=== PATIENT | female | born 1950 | race African-American/Black ===

== ENCOUNTER 2017-06-14 11:40 | Outpatient (CLI) | payer MEDICARE, OTHER ==
[2017-06-14 13:01] LABS: Anion Gap 16 mmol/L (10-20); BUN (Urea Nitrogen) 19 mg/dL (9.8-20.1); Calc. Creatinine Clearance 0 mL/min (70-130); Calcium 8.9 mg/dL (7.8-10.44); Carbon Dioxide 25 mmol/L (23-31); Cardiac Risk 3.8 (Less than 4.5); Chloride 102 mmol/L (98-107); Cholesterol 135 mg/dl (< 200 Desired); Estimated GFR-MDRD 42; Glucose 405 mg/dL (80-115); HDL Cholesterol 36 mg/dL (>60 Neg Risk); LDL Cholesterol, Calculated 74 mg/dL; Potassium 3.7 mmol/L (3.5-5.1); Sodium 139 mmol/L (136-145); Triglycerides 125 mg/dL (Less than 150); Uric Acid 10.2 mg/dL (2.6-6.0)
== END 2017-06-14 11:41 | disposition home or self-care (01) ==
LOC: NAV LAB 11:40
PROVIDERS: ATTEND Family Medicine
DX: M10.9 Gout, unspecified (principal); Z79.899 Other long term (current) drug therapy
CPT/HCPCS: 36415; 80048; 80061; 84550

== ENCOUNTER 2018-02-17 14:46 | Emergency (ER) | payer MEDICARE, OTHER | END 2018-02-17 15:58 | disposition home or self-care (01) | LOC: NAV ERS 14:46 | DX: S81.832A Puncture wound without foreign body, left lower leg, initial encounter (principal); I10 Essential (primary) hypertension; E11.9 Type 2 diabetes mellitus without complications; E78.5 Hyperlipidemia, unspecified; Z79.4 Long term (current) use of insulin; Z79.82 Long term (current) use of aspirin; Z86.73 Personal history of transient ischemic attack (TIA), and cerebral infarction without residual deficits; Z79.899 Other long term (current) drug therapy; W22.8XXA Striking against or struck by other objects, initial encounter; Y92.810 Car as the place of occurrence of the external cause | CPT/HCPCS: 99283 ==

== ENCOUNTER 2019-02-12 16:05 | Inpatient (IN) | payer MEDICARE, OTHER ==
[2019-02-12 16:43] VITALS: BMI 51.3
[2019-02-12] MEDS ORDERED: Dextrose 50% Abboject 50 ML SYRINGE IVP PRN (18:10)
[2019-02-12] MEDS ORDERED: HumaLOG 300 UNITS/3 ML VIAL SC PRN (18:10)
[2019-02-12] MEDS ORDERED: Dextrose 5% in Water 1,000 ML IV PRN (18:10)
[2019-02-12] MEDS: Cefdinir 300 MG CAP PO SCH (21:37)
[2019-02-12] MEDS: Gabapentin 100 MG CAP PO SCH (21:38)
[2019-02-13 06:15] LABS: #Basophils 0.1 thou/uL (0.0-0.2); #Eosinphils 0.3 thou/uL (0.0-0.7); #Lymphocytes 1.2 thou/uL (1.20-3.40); #Monocytes 0.6 thou/uL (0.11-0.59); #Neutrophils 3.3 thou/uL (1.40-6.50); %Basophils 1.9 % (0.0-1.0); %Eosinophils 4.8 % (0.0-10.0); %Lymphocytes 21.2 % (21.0-51.0); %Monocytes 11.3 % (0.0-10.0); %Neutrophils 60.8 % (42.0-75.0); Hemoglobin 9.3 g/dL (12.0-16.0); Mean Corpuscular HGB CONC 32.1 g/dL (32.0-36.0); Mean Corpuscular Hemoglobin 30.3 pg (27.0-31.0); Mean Corpuscular Volume 94.2 fL (78.0-98.0); Mean Platelet Volume 6.2 fL (7.4-10.4); Platelet Count 220 thou/uL (130-400); RBC Distribution Width 15.7 % (11.5-14.5); Red Blood Cell (RBC) Count 3.08 mill/uL (4.20-5.40); White Blood Cell (WBC) Count 5.5 thou/uL (4.8-10.8)
[2019-02-13 06:16] LABS: Anion Gap 11 mmol/L (10-20); BUN (Urea Nitrogen) 19 mg/dL (9.8-20.1); Calc. Creatinine Clearance 61 mL/min (70-130); Calcium 8.3 mg/dL (7.8-10.44); Carbon Dioxide 23 mmol/L (23-31); Chloride 112 mmol/L (98-107); Estimated GFR-MDRD 33; Glucose 82 mg/dL (80-115); Potassium 5.7 mmol/L (3.5-5.1); Sodium 140 mmol/L (136-145)
[2019-02-13] MEDS: pyridOXINE 50 MG (B6) TAB PO SCH (09:10)
[2019-02-13] MEDS: Lisinopril 20 MG TAB PO SCH (09:11)
[2019-02-13] MEDS: Folic Acid 1 MG TAB PO SCH (09:11)
[2019-02-13] MEDS: NIFEdipine XL 30 MG TAB PO SCH (09:11)
[2019-02-13] MEDS: Cefdinir 300 MG CAP PO SCH ×2 (09:12→20:59)
[2019-02-13] MEDS: Aspirin 81 mg Enteric Coated Tablet PO SCH (09:12)
[2019-02-13] MEDS: Hydrochlorothiazide 25 MG TAB PO SCH (09:12)
[2019-02-13] MEDS: Gabapentin 100 MG CAP PO SCH ×3 (09:12→20:59)
[2019-02-13] MEDS: LINACLOTIDE (LINZESS) 145 MCG PO SCH (15:22)
[2019-02-14] MEDS: LINACLOTIDE (LINZESS) 145 MCG PO SCH (08:19)
[2019-02-14] MEDS: Cefdinir 300 MG CAP PO SCH ×2 (08:23→20:49)
[2019-02-14] MEDS: pyridOXINE 50 MG (B6) TAB PO SCH (08:23)
[2019-02-14] MEDS: Hydrochlorothiazide 25 MG TAB PO SCH (08:23)
[2019-02-14] MEDS: Folic Acid 1 MG TAB PO SCH (08:24)
[2019-02-14] MEDS: Lisinopril 20 MG TAB PO SCH (08:25)
[2019-02-14] MEDS: NIFEdipine XL 30 MG TAB PO SCH (08:25)
[2019-02-14] MEDS: Aspirin 81 mg Enteric Coated Tablet PO SCH (08:25)
[2019-02-14] MEDS: Gabapentin 100 MG CAP PO SCH ×3 (08:26→20:49)
[2019-02-14 10:53] LABS: Anion Gap 13 mmol/L (10-20); BUN (Urea Nitrogen) 19 mg/dL (9.8-20.1); Calc. Creatinine Clearance 59 mL/min (70-130); Calcium 8.2 mg/dL (7.8-10.44); Carbon Dioxide 21 mmol/L (23-31); Chloride 111 mmol/L (98-107); Estimated GFR-MDRD 32; Glucose 87 mg/dL (80-115); Potassium 5.9 mmol/L (3.5-5.1); Sodium 139 mmol/L (136-145)
--- NOTE | 2019-02-14 14:22 | ULT ---
VENOUS DOPPLER ULTRASOUND OF THE LEFT UPPER EXTREMITY: HISTORY: Left arm swelling and edema TECHNIQUE: Grayscale color-flow and spectral Doppler imaging of the deep venous system of the left upper extremi ty was performed. FINDINGS: There is good flow, compression and normal spectral waveforms in the left internal jugular, subclavia n, axillary, brachial, radial, ulnar, basilic and cephalic veins. IMPRESSION: No evidence of DVT in the left upper extremity.
[2019-02-14] MEDS: Enoxaparin Sodium 30 MG/0.3 ML SYRINGE SC SCH (20:49)
[2019-02-15 05:32] LABS: #Basophils 0.1 thou/uL (0.0-0.2); #Eosinphils 0.2 thou/uL (0.0-0.7); #Lymphocytes 1.5 thou/uL (1.20-3.40); #Monocytes 0.5 thou/uL (0.11-0.59); #Neutrophils 2.5 thou/uL (1.40-6.50); %Basophils 1.4 % (0.0-1.0); %Eosinophils 4.3 % (0.0-10.0); %Lymphocytes 31.2 % (21.0-51.0); %Monocytes 10.8 % (0.0-10.0); %Neutrophils 52.3 % (42.0-75.0); Hemoglobin 9.1 g/dL (12.0-16.0); Mean Corpuscular HGB CONC 31.6 g/dL (32.0-36.0); Mean Corpuscular Hemoglobin 30.2 pg (27.0-31.0); Mean Corpuscular Volume 95.4 fL (78.0-98.0); Mean Platelet Volume 6.1 fL (7.4-10.4); Platelet Count 211 thou/uL (130-400); RBC Distribution Width 15.7 % (11.5-14.5); Red Blood Cell (RBC) Count 3.03 mill/uL (4.20-5.40); White Blood Cell (WBC) Count 4.7 thou/uL (4.8-10.8)
[2019-02-15 05:42] LABS: Anion Gap 13 mmol/L (10-20); BUN (Urea Nitrogen) 19 mg/dL (9.8-20.1); Calc. Creatinine Clearance 62 mL/min (70-130); Calcium 8.3 mg/dL (7.8-10.44); Carbon Dioxide 21 mmol/L (23-31); Chloride 112 mmol/L (98-107); Estimated GFR-MDRD 34; Glucose 71 mg/dL (80-115); Potassium 5.7 mmol/L (3.5-5.1); Sodium 140 mmol/L (136-145)
[2019-02-15] MEDS: LINACLOTIDE (LINZESS) 145 MCG PO SCH (07:30)
[2019-02-15] MEDS: Aspirin 81 mg Enteric Coated Tablet PO SCH (08:09)
[2019-02-15] MEDS: Gabapentin 100 MG CAP PO SCH ×3 (08:09→20:26)
[2019-02-15] MEDS: Cefdinir 300 MG CAP PO SCH ×2 (08:09→20:26)
[2019-02-15] MEDS: Folic Acid 1 MG TAB PO SCH (08:10)
[2019-02-15] MEDS: pyridOXINE 50 MG (B6) TAB PO SCH (08:10)
[2019-02-15] MEDS: Lisinopril 20 MG TAB PO SCH (08:11)
[2019-02-15] MEDS: Hydrochlorothiazide 25 MG TAB PO SCH (08:12)
[2019-02-15] MEDS: NIFEdipine XL 30 MG TAB PO SCH (08:12)
[2019-02-15] MEDS: Enoxaparin Sodium 30 MG/0.3 ML SYRINGE SC SCH (20:25)
[2019-02-16] MEDS: LINACLOTIDE (LINZESS) 145 MCG PO SCH (07:37)
[2019-02-16] MEDS: Folic Acid 1 MG TAB PO SCH (08:15)
[2019-02-16] MEDS: Aspirin 81 mg Enteric Coated Tablet PO SCH (08:16)
[2019-02-16] MEDS: Lisinopril 20 MG TAB PO SCH (08:17)
[2019-02-16] MEDS: pyridOXINE 50 MG (B6) TAB PO SCH (08:17)
[2019-02-16] MEDS: Hydrochlorothiazide 25 MG TAB PO SCH (08:18)
[2019-02-16] MEDS: Gabapentin 100 MG CAP PO SCH (08:18)
[2019-02-16] MEDS: Cefdinir 300 MG CAP PO SCH ×2 (08:18→20:38)
[2019-02-16] MEDS: NIFEdipine XL 30 MG TAB PO SCH (08:18)
[2019-02-16 10:44] LABS: Anion Gap 12 mmol/L (10-20); BUN (Urea Nitrogen) 19 mg/dL (9.8-20.1); Calc. Creatinine Clearance 60 mL/min (70-130); Calcium 8.3 mg/dL (7.8-10.44); Carbon Dioxide 21 mmol/L (23-31); Chloride 112 mmol/L (98-107); Estimated GFR-MDRD 33; Glucose 85 mg/dL (80-115); Potassium 5.5 mmol/L (3.5-5.1); Sodium 139 mmol/L (136-145)
[2019-02-16] MEDS: hydrALAZINE 25 MG TAB PO SCH ×2 (15:03→20:38)
--- NOTE | 2019-02-16 15:29 | HP ---
The patient of Dr. Melany Chaney. Silvino of admission to the skilled unit on February 12, 2019. HISTORY OF PRESENT ILLNESS: The patient is a very thin, cachectic, 68-year-old black female who was transferred from [facility] after having diagnosis of altered mental status, secondary to significant hypoglycemia. She has history of type 2 diabetes, but apparently, has not been on any medications, but has been eating poorly, secondary to chronic kidney disease and a distant CVA. She also has a history of hypertension which was treated with lisinopril and hydrochlorothiazide and was found to be hypertensive on presentation to [facility]. Her glucose was found on admission to be 48, and she responded to treatment after infusion of glucose and better control of her blood pressure. She had evaluation with CT angio of the head showing no significant abnormalities as well as CT of the brain showing no acute findings. She subsequently was felt to have only hypoglycemia secondary to poor oral intake and decreased nutrition and responded to treatment for such at hospital, but was found to be significantly weak and unable to maintain ADLs. She was also found that she had been taking gabapentin 300 mg three times daily, and it was felt this may have contributed to her lethargy, and this was decreased to 100 mg three times daily. Finally, she was found to have urinary tract infection with pyuria and bacteria, but with a negative culture, being treated with Omnicef. Her blood pressure has been controlled with the addition of Procardia. At this time, she is awake and responsive, but still very weak and somewhat confused. REVIEW OF SYSTEMS: Unable to be obtained. PAST MEDICAL HISTORY: Obtained from the old chart is positive for hypertension, hyperlipidemia, and diabetes. PAST SURGICAL HISTORY: Positive for hysterectomy. MEDICATIONS: At this time, include; 1. Omnicef 300 twice daily. 2. Lovenox 30 mg subcu daily. 3. Gabapentin 100 three times daily. 4. Hydrochlorothiazide 25 daily. 5. Lisinopril 20 daily. 6. Nifedipine 60 daily. 7. Sertraline 25 nightly. PHYSICAL EXAMINATION: VITAL SIGNS: Show blood pressure 157/77, pulse 73, respirations 18, O2 sat is 100% on room air, and temperature is 98.7. HEENT: Shows pupils to be equal, round, and reactive to light and accommodation. Sclerae anicteric. Conjunctivae pale. Oral mucous membranes are dehydrated. NECK: Shows JVP is not elevated. Carotids 2+ and equal without bruits. No nodes or masses. LUNGS: Clear. No rales, rhonchi, rubs, or wheezes. CARDIAC: Regular rhythm. No gallops or murmurs. ABDOMEN: Soft and nontender with no masses or organomegaly. SKIN/EXTREMITIES: Show trace edema. No clubbing or cyanosis. NEUROLOGIC: The patient is lethargic, but responds appropriately. No acute distress. No focal findings. No numbness. No localized decreased sensation or strength. LABORATORY DATA: On admission showed a white count of 5500, hematocrit 29, and hemoglobin 9. Accu-Cheks ranged from 71 to 84. Sodium 139, potassium 5.9, chloride 111, bicarbonate 21, BUN 19, and creatinine 1.9. ASSESSMENT: A 68-year-old white female with history of recurrent hypoglycemia and chronic kidney disease stage 3, who is very weak and lethargic, but is eating and responding appropriately and will be started on PT. Will be monitored closely for recurrent hypoglycemia and for worsening renal failure and hyperkalemia. Job ID: [id number]
[2019-02-16] MEDS: Enoxaparin Sodium 30 MG/0.3 ML SYRINGE SC SCH (20:37)
[2019-02-16] MEDS ORDERED: hydrALAZINE 25 MG TAB PO SCH (21:45)
--- NOTE | 2019-02-16 21:56 | PRG ---
DATE OF SERVICE: 02/15/2019 SUBJECTIVE: The patient is a very thin 68-year-old black female with a history of malnutrition, recurrent hypoglycemia and significant weakness, who has been admitted to inpatient rehab for strengthening. She has been slowly improving. Her urinary tract infection has been treated. She is becoming more awake and responsive. OBJECTIVE: VITAL SIGNS: Show to have blood pressure 182/93, pulse 79, O2 saturations 99% on room air. LUNGS: Clear. CARDIAC: Shows regular rhythm. ABDOMEN: Soft and nontender. LABORATORY DATA: White count is 4700, hematocrit is 28, hemoglobin 9.1. Accu-Cheks ranged from 67 to 82. Sodium is 140, potassium 5.7, chloride 112, bicarb 21, BUN 19, creatinine 1.81. ASSESSMENT: 1. Fairly cachectic black female with malnutrition, recurrent hypoglycemia, appears to be improving with nutrition in the hospital. 2. Chronic kidney disease, stage 3, which is stable. 3. Hyperkalemia, stable. 4. Severe deconditioning, slowly improving. PLAN: 1. Continue PT, OT. Continue to monitor blood pressure off lisinopril, but only on hydralazine and hydrochlorothiazide. 2. Continue only Accu-Cheks for diabetic control. 3. Discontinue gabapentin and monitor lethargy. 4. Continue Omnicef for urinary tract infection. Job ID: [id number]
--- NOTE | 2019-02-16 22:17 | PRG ---
DATE OF SERVICE: 02/16/2019 SUBJECTIVE: The patient feels well, lying in bed, resting, but awakens easily, states she better and ready for therapy tomorrow. OBJECTIVE: VITAL SIGNS: Show blood pressure 150/68, temperature 97, pulse 72, respirations 19, O2 saturations 96% on room air. LUNGS: Clear. CARDIAC: Shows regular rhythm. ABDOMEN: Soft, nontender LABORATORY DATA: Show sodium stable at 139, potassium decreased , chloride 112, bicarb 21, BUN 19, creatinine 1.85. Accu-Cheks ranged from 67 to 84. ASSESSMENT: Improving deconditioning, stable chronic kidney disease stage 3, improving nutrition, but with persistent borderline hypoglycemia, borderline hypertension, off lisinopril. PLAN: Increase hydralazine to 50 mg three times daily. Continue to stress oral intake. Continue to stress fluid intake. Continue hydrochlorothiazide, but monitor renal function. Restart PT/OT tomorrow. Job ID: [id number]
[2019-02-17] MEDS: LINACLOTIDE (LINZESS) 145 MCG PO SCH (09:08)
[2019-02-17] MEDS: pyridOXINE 50 MG (B6) TAB PO SCH (09:08)
[2019-02-17] MEDS: hydrALAZINE 25 MG TAB PO SCH ×3 (09:10→20:25)
[2019-02-17] MEDS: NIFEdipine XL 30 MG TAB PO SCH (09:10)
[2019-02-17] MEDS: Folic Acid 1 MG TAB PO SCH (09:11)
[2019-02-17] MEDS: Hydrochlorothiazide 25 MG TAB PO SCH (09:12)
[2019-02-17] MEDS: Aspirin 81 mg Enteric Coated Tablet PO SCH (09:12)
[2019-02-17] MEDS: Cefdinir 300 MG CAP PO SCH ×2 (09:13→20:24)
--- NOTE | 2019-02-17 13:04 | HP ---
CHIEF COMPLAINT: Deconditioning, for physical therapy. HISTORY OF PRESENT ILLNESS: This is a 68-year-old overweight female, who presented to [facility] in [place].. She was noted to be hypoglycemic with uncontrolled hypertension. She was admitted to the hospital and treated with IV fluids and decrease in dose of gabapentin to 100 mg t.i.d. She was positive for UTI and was treated with Omnicef. Procardia was added for blood pressure. She has been transferred here for therapy. The patient is resting comfortably and denies any complaints. Family thinks that the Zoloft is causing some problem with her cognition. She also has left upper extremity swelling, which apparently has been there since hospital admission to [facility] on the . Plan is to get a venous Doppler of the left lower extremity and elevate left arm. She has chronic lymphedema and stasis dermatitis in her lower extremities. PAST MEDICAL HISTORY: 1. Diabetes mellitus, type 2. 2. Hypertension 3. Dyslipidemia. 4. chronic lymphedema PAST SURGICAL HISTORY: Hysterectomy. PSYCHOSOCIAL HISTORY: Denies any tobacco, alcohol, or recreational drug use. Good family support. FAMILY HISTORY: Noncontributory. ALLERGIES: NO KNOWN DRUG ALLERGIES. MEDICATIONS: She has been transferred here on the following medications: 1. Cefdinir 300mg po twice daily. 2. Gabapentin 100 mg t.i.d. 3. Carvedilol 6.25mg po twice daily . 4. Lisinopril 20 mg daily. 5. Procardia XL 60 mg daily. 6. Linzess 145 mcg daily. 7. Potassium 40 mEq b.i.d. 8. Vitamin B6 25 mg daily. 9. Zoloft 50 mg at bedtime. REVIEW OF SYSTEMS: CARDIOVASCULAR SYSTEM: Denies any chest pain, shortness of breath, palpitations, PND, orthopnea, or pedal edema. RESPIRATORY SYSTEM: Denies any chronic cough, expectoration, or pleuritic type chest pain. GASTROINTESTINAL SYSTEM: Denies any nausea, vomiting, or diarrhea. She does have chronic constipation. Denies any hematemesis, melena, or hematochezia. GENITOURINARY SYSTEM: Denies any frequency, urgency, dysuria, or hematuria. CENTRAL NERVOUS SYSTEM: denies any focal numbness or fainting spells. Encephalopathy is improving per family. HEENT: No difficulty with speech, vision, or hearing. She does need assistance with feeding. SKIN: Denies any change to her rash. She does have chronic stasis dermatitis and lymphedema. PHYSICAL EXAMINATION: GENERAL: A pleasant 68-year-old overweight female, who is resting comfortably in bed and denies any complaints. She responds appropriately to questions. Family is with her. HEENT: Normocephalic and atraumatic. Pupils equally react to light and accommodation. NECK: No JVD, thyromegaly, cervical lymphadenopathy, throat exudates, or carotid bruits. CARDIOVASCULAR SYSTEM: S1 and S2 +, RRR. ABDOMEN: Soft, obese, and nontender. Bowel sounds heard in all quadrants. EXTREMITIES: Chronic lymphedema of bilateral lower extremity with stasis dermatitis and hyperpigmentation. There is some swelling in her left upper extremity, but no tenderness. No warmth or redness. CENTRAL NERVOUS SYSTEM: Awake and responsive. Cranial nerves 2 through 12 grossly intact. Motor system examination shows generalized weakness. LABORATORY VALUES: White count is 5.5, H and H are 9.3 and 29.1. Sodium 139, potassium slightly elevated at 5.9, and BUN and creatinine are 19 and 1.90. IMPRESSION: 1. Resolved hypoglycemia. 2. Improving encephalopathy. 3. Possible urinary tract infection. 4. Diabetes mellitus, type 2. 5. Hypertension. 6. Dyslipidemia. 7. Chronic lymphedema. 8. Hyperkalemia. 9. Chronic kidney disease, stage 3. PLAN: 1. Stop potassium supplements. 2. Continue other discharge medications. 3. Accu-Cheks a.c. and at bedtime with mild sliding scale coverage. 4. 1800 calorie heart healthy renal diet. 5. DVT prophylaxis with PlexiPulses. 6. Decubitus precaution. 7. PT/OT eval and treat. 8. Recheck potassium levels. 9. Titrate Zoloft to off per family request. 10. Left upper extremity venous Doppler. 11. Discussed with the patient and family in detail. All questions answered. Job ID: [id number] [facility]
--- NOTE | 2019-02-17 19:28 | PRG ---
DATE OF SERVICE: 02/17/2019 [address] patient is of Dr. Melany Chaney. SUBJECTIVE: The patient feels better today, cooperating with therapy, more alert and responsive. Still very weak. OBJECTIVE: VITAL SIGNS: Shows blood pressure still up to 172/79, pulse 76, temperature 97.7, O2 sats 97% on room air. Accu-Cheks ranged from 68 to 92. PT states that the patient is cooperating, still barely able to sit up inside the bed without assistance. ASSESSMENT: 1. Severe deconditioning, improving slowly with good cooperation. 2. Persistent hypertension, on hydralazine 50 mg three times daily and we will add carvedilol 6.25 twice daily. 3. Chronic kidney disease stage 3, off lisinopril and hydrochlorothiazide, stable. 4. Malnutrition improving as the patient is eating well. PLAN: 1. Continue PT/OT. 2. Add carvedilol 6.25 twice daily. Continue to monitor oral intake. Continue to monitor Accu-Cheks. Job ID: [id number]
[2019-02-17] MEDS: Enoxaparin Sodium 30 MG/0.3 ML SYRINGE SC SCH (20:24)
[2019-02-18] MEDS: LINACLOTIDE (LINZESS) 145 MCG PO SCH (08:05)
[2019-02-18] MEDS: NIFEdipine XL 30 MG TAB PO SCH (08:06)
[2019-02-18] MEDS: pyridOXINE 50 MG (B6) TAB PO SCH (08:06)
[2019-02-18] MEDS: Cefdinir 300 MG CAP PO SCH (08:06)
[2019-02-18] MEDS: Aspirin 81 mg Enteric Coated Tablet PO SCH (08:06)
[2019-02-18] MEDS: hydrALAZINE 25 MG TAB PO SCH ×3 (08:07→20:43)
[2019-02-18] MEDS: Carvedilol 6.25 MG TAB PO SCH ×2 (08:07→17:46)
[2019-02-18] MEDS: Hydrochlorothiazide 25 MG TAB PO SCH (08:07)
[2019-02-18] MEDS: Folic Acid 1 MG TAB PO SCH (09:00)
--- NOTE | 2019-02-18 13:31 | PRG ---
DATE OF SERVICE: 02/18/2019 SUBJECTIVE: Ms. Valentin is up in her bed and just finished eating her lunch. She ate about 30%. She is on pureed diet with a mechanically soft or ground meats. She apparently had about half of her Nepro pudding this morning. I advised the patient that she needs to eat and drink well, so that she can get better. No family at bedside. OBJECTIVE: VITAL SIGNS: She is afebrile. Heart rate is 74, respirations 18, oxygen saturation 98% on room air, blood pressure 169/81. CARDIOVASCULAR SYSTEM: S1 and S2 plus. RESPIRATORY SYSTEM: Normal vesicular breath sounds. ABDOMEN: Soft, nontender. Bowel sounds heard in all quadrants. EXTREMITIES: Chronic lymphedema. CENTRAL NERVOUS SYSTEM: Awake and responsive. Generalized weakness. LABORATORY DATA: Blood sugars are under excellent control at 97, 92, 82, 74, and 70. Her sodium is 139, this was from the 26th, potassium still high at 5.5, BUN and creatinine are 19 and 1.85. IMPRESSION: 1. Resolved urinary tract infection. 2. Hyperkalemia, improving. 3. Diabetes mellitus, type 2. 4. Hypertension. 5. Dyslipidemia. 6. Chronic lymphedema. 7. Peripheral neuropathy. 8. Deconditioning. PLAN: 1. Continue current medications, but discontinue Omnicef and Zoloft per family's request. 2. Continue other medications. 3. Nutritional support. 4. Three-day calorie count. 5. DVT prophylaxis with Lovenox. 6. Decubitus precaution. 7. Stress ulcer prophylaxis. 8. PT and OT eval and treat. 9. Discussed with the patient and nursing in detail. All questions answered. Job ID: [id number]
[2019-02-18] MEDS: Enoxaparin Sodium 30 MG/0.3 ML SYRINGE SC SCH (20:43)
[2019-02-19 07:06] LABS: #Eosinphils 0.2 thou/uL (0.0-0.7); #Lymphocytes 1.1 thou/uL (1.20-3.40); #Monocytes 0.4 thou/uL (0.11-0.59); #Neutrophils 3.6 thou/uL (1.40-6.50); %Basophils 0.9 % (0.0-1.0); %Lymphocytes 20.8 % (21.0-51.0); %Monocytes 7.9 % (0.0-10.0); %Neutrophils 67.4 % (42.0-75.0); Hemoglobin 8.7 g/dL (12.0-16.0); Mean Corpuscular HGB CONC 31.5 g/dL (32.0-36.0); Mean Corpuscular Hemoglobin 29.7 pg (27.0-31.0); Mean Corpuscular Volume 94.4 fL (78.0-98.0); Mean Platelet Volume 7.2 fL (7.4-10.4); Platelet Count 196 thou/uL (130-400); RBC Distribution Width 15.9 % (11.5-14.5); Red Blood Cell (RBC) Count 2.91 mill/uL (4.20-5.40); White Blood Cell (WBC) Count 5.3 thou/uL (4.8-10.8)
[2019-02-19 07:18] LABS: Anion Gap 12 mmol/L (10-20); BUN (Urea Nitrogen) 18 mg/dL (9.8-20.1); Calc. Creatinine Clearance 59 mL/min (70-130); Calcium 8.2 mg/dL (7.8-10.44); Carbon Dioxide 20 mmol/L (23-31); Chloride 110 mmol/L (98-107); Estimated GFR-MDRD 32; Glucose 80 mg/dL (80-115); Potassium 4.9 mmol/L (3.5-5.1); Sodium 137 mmol/L (136-145)
[2019-02-19] MEDS: NIFEdipine XL 30 MG TAB PO SCH (08:10)
[2019-02-19] MEDS: Hydrochlorothiazide 25 MG TAB PO SCH (08:11)
[2019-02-19] MEDS: hydrALAZINE 25 MG TAB PO SCH ×3 (08:11→21:09)
[2019-02-19] MEDS: pyridOXINE 50 MG (B6) TAB PO SCH (08:11)
[2019-02-19] MEDS: Carvedilol 6.25 MG TAB PO SCH ×2 (08:11→17:15)
[2019-02-19] MEDS: Aspirin 81 mg Enteric Coated Tablet PO SCH (08:11)
[2019-02-19] MEDS: Folic Acid 1 MG TAB PO SCH (08:12)
[2019-02-19] MEDS: Enoxaparin Sodium 30 MG/0.3 ML SYRINGE SC SCH (21:11)
[2019-02-20] MEDS: Folic Acid 1 MG TAB PO SCH (08:10)
[2019-02-20] MEDS: pyridOXINE 50 MG (B6) TAB PO SCH (08:11)
[2019-02-20] MEDS: hydrALAZINE 25 MG TAB PO SCH ×3 (08:11→21:00)
[2019-02-20] MEDS: Hydrochlorothiazide 25 MG TAB PO SCH (08:11)
[2019-02-20] MEDS: Carvedilol 6.25 MG TAB PO SCH ×2 (08:12→17:26)
[2019-02-20] MEDS: NIFEdipine XL 30 MG TAB PO SCH (08:12)
[2019-02-20] MEDS: Aspirin 81 mg Enteric Coated Tablet PO SCH (08:13)
--- NOTE | 2019-02-20 12:46 | PRG ---
DATE OF SERVICE: 02/20/2019 SUBJECTIVE: Ms. Valentin is up in her bed, eating her pureed diet. She is able to feed herself, but apparently, her appetite has not been good, 3-day calorie count is underway. Her niece had also called the office wanting to know what the discharge plan is because she thinks Ms. Valentin cannot take care of herself at home, and all agree based upon therapy and nursing notes as well as my discussion with them. I advised I could not talk to the niece as she did not cloth picker her phone and voicemail is not set up. I did let nursing know that plan is to consult Case Management and help with discharge planning and possible halfway placement. OBJECTIVE: VITAL SIGNS: She is afebrile. Heart rate 68, respirations 16, oxygen saturation 97% on room air, blood pressure 152/68. CARDIOVASCULAR: S1 and S2 plus. RESPIRATORY: Normal vesicular breath sounds. ABDOMEN: Soft, obese, and nontender. Bowel sounds heard in all quadrants. EXTREMITIES: Without cyanosis or clubbing. Chronic stasis dermatitis and looks like chronic lymphedema. CENTRAL NERVOUS SYSTEM: Awake and responsive. Cranial nerves 2 through 12 grossly intact. She does have dysphagia, on a pureed diet. Generalized weakness. LABORATORY VALUES: White count is 5.3, H and H are 8.7 and 27.5. Blood sugars are 76, 80, 74, and 102. Sodium 137, potassium 4.9, BUN and creatinine are 18 and 1.88. IMPRESSION: 1. Diabetes mellitus, type 2. 2. Hypertension. 3. Dyslipidemia. 4. Chronic lymphedema. 5. Dysphagia, on a pureed diet. 6. Resolving urinary tract infection. 7. Resolved hypoglycemia. 8. Chronic kidney disease, stage 3. 9. Deconditioning. PLAN: 1. Continue current medications. 2. 1800-calorie heart-healthy ADA pureed diet. 3. Aspiration precautions. 4. Accu-Cheks with sliding scale coverage. 5. DVT and stress ulcer prophylaxis. 6. Decubitus precaution. 7. Physical therapy. 8. Consult Case Management for discharge planning for possible halfway placement. 9. Routine laboratory values. 10. No family at bedside. 11. Discussed with nursing. Job ID: [id number]
[2019-02-20] MEDS: Enoxaparin Sodium 30 MG/0.3 ML SYRINGE SC SCH (21:01)
[2019-02-21] MEDS: Hydrochlorothiazide 25 MG TAB PO SCH (08:23)
[2019-02-21] MEDS: Folic Acid 1 MG TAB PO SCH (08:23)
[2019-02-21] MEDS: hydrALAZINE 25 MG TAB PO SCH ×3 (08:24→20:23)
[2019-02-21] MEDS: pyridOXINE 50 MG (B6) TAB PO SCH (08:24)
[2019-02-21] MEDS: Carvedilol 6.25 MG TAB PO SCH ×2 (08:25→17:18)
[2019-02-21] MEDS: NIFEdipine XL 30 MG TAB PO SCH (08:25)
[2019-02-21] MEDS: Aspirin 81 mg Enteric Coated Tablet PO SCH (08:25)
[2019-02-21] MEDS: Enoxaparin Sodium 30 MG/0.3 ML SYRINGE SC SCH (20:23)
[2019-02-22] MEDS ORDERED: Milk Of Magnesia 30 ML UDCUP PO PRN (07:49)
[2019-02-22] MEDS: Polyethylene Glycol 3350 17 GM Packet PO SCH (08:37)
[2019-02-22] MEDS: pyridOXINE 50 MG (B6) TAB PO SCH (08:37)
[2019-02-22] MEDS: NIFEdipine XL 30 MG TAB PO SCH (08:37)
[2019-02-22] MEDS: hydrALAZINE 25 MG TAB PO SCH ×3 (08:38→21:16)
[2019-02-22] MEDS: Carvedilol 6.25 MG TAB PO SCH ×2 (08:38→17:25)
[2019-02-22] MEDS: Folic Acid 1 MG TAB PO SCH (08:39)
[2019-02-22] MEDS: Aspirin 81 mg Enteric Coated Tablet PO SCH (08:39)
[2019-02-22] MEDS: Hydrochlorothiazide 25 MG TAB PO SCH (08:39)
--- NOTE | 2019-02-22 10:32 | PRG ---
DATE OF SERVICE: 02/22/2019 SUBJECTIVE: Ms. Valentin is a 68-year-old female with uncontrolled hypertension and hypoglycemia. She was admitted to the hospital, noted to be dehydrated. She was started on gabapentin 100 mg t.i.d. She had a urinary tract infection treated appropriately. Blood pressure was controlled with Procardia. She was transferred to [facility] for physical therapy and occupational therapy to increase her strength and her stamina. She has had difficulty eating, in that she just does not want to eat. Her calorie count on Sunday was 844 calories, on Sunday 213 calories, on 1474 calories because she had Ensure Pudding, a can of Suplena. She also ate some ice cream. She had Suplena 2 times a day. She states she is not very hungry this morning. This morning, the patient states she is not very hungry. We encouraged her to eat or else we may have to start her on some Megace or something like that. Unfortunately, Medicare does not pay for that unless the patient has HIV. Otherwise, the patient has no complaints today and states she is waiting for her breakfast. OBJECTIVE: GENERAL: This is a well-developed, morbidly obese, female, in no apparent distress. VITAL SIGNS: Reveal blood pressure this morning 133/63, pulse 62, respirations 20, O2 saturation 96% on room air, T-max 97.9. HEENT: Reveals normocephalic and nontraumatic cranium. Pupils are equally round and reactive. Extraocular movements are intact. Nose and throat are dry. NECK: Supple without masses, nodes, or bruits. CHEST: Clear to auscultation. No rales, rhonchi, wheezes, or cough is heard. HEART: Reveals a regular rate and rhythm without murmurs, gallops, or rubs. ABDOMEN: Obese, soft, and nontender. Normal bowel sounds in all quadrants. No rebound or guarding. GENITOURINARY: Deferred. EXTREMITIES: Reveal chronic stasis dermatitis, chronic edema. No cyanosis or clubbing is noted. NEUROLOGIC: The patient is oriented x2. The patient is on a pureed diet secondary to her dysphagia and generalized weakness. IMPRESSION: 1. Diabetes mellitus, type 2. 2. Dysphagia, on a pureed diet. 3. Poor appetite. 4. Hypertension. 5. Hyperlipidemia. 6. Chronic lymphedema. 7. Resolving urinary tract infection. 8. Hypoglycemia. 9. Chronic kidney disease, stage 3. 10. Generalized weakness with deconditioning. PLAN: 1. Continue present medications. 2. 1800-calorie ADA pureed diet. 3. Aspiration precautions. 4. Continue Accu-Cheks with mild sliding scale coverage, which she had none yesterday. 5. DVT and stress ulcer prophylaxis. 6. Decubitus precautions. 7. Continue physical therapy and occupational therapy. 8. Consult is in for Case Management for discharge planning to possible fci since the family is unable to care for her. 9. No family is at bedside. 10. Discussed with the patient and nursing. Job ID: [id number]
[2019-02-22] MEDS: Enoxaparin Sodium 30 MG/0.3 ML SYRINGE SC SCH (21:16)
[2019-02-23] MEDS: Folic Acid 1 MG TAB PO SCH (08:46)
[2019-02-23] MEDS: pyridOXINE 50 MG (B6) TAB PO SCH (08:46)
[2019-02-23] MEDS: NIFEdipine XL 30 MG TAB PO SCH (08:46)
[2019-02-23] MEDS: Polyethylene Glycol 3350 17 GM Packet PO SCH (08:47)
[2019-02-23] MEDS: Carvedilol 6.25 MG TAB PO SCH ×2 (08:47→17:48)
[2019-02-23] MEDS: hydrALAZINE 25 MG TAB PO SCH ×3 (08:47→20:36)
[2019-02-23] MEDS: Hydrochlorothiazide 25 MG TAB PO SCH (08:47)
[2019-02-23] MEDS: Aspirin 81 mg Enteric Coated Tablet PO SCH (08:47)
--- NOTE | 2019-02-23 10:04 | PRG ---
DATE OF SERVICE: 02/23/2019 SUBJECTIVE: Ms. Valentin is a very pleasant 68-year-old female. She was admitted to the hospital with dehydration, started on gabapentin t.i.d. She was found to have urinary tract infection and treated. Blood pressure has been out of control and she was placed on Procardia, which has helped quite a bit. She actually was transferred here for physical therapy and occupational therapy to increase her strength and her stamina. The patient did well eating on Sunday, but yesterday she had difficulty and had to be fed for a while. Calorie count has not been done over the weekend. I indicated to her nurse that if she is not eating at least 50% of her meal please feed her. Family is considering placement in a halfway since she is not able to care for herself and even feed herself. OBJECTIVE: VITAL SIGNS: Today reveal blood pressure 161/64, pulse 66, respirations 20, O2 saturation 95% to 96% on room air, T-max 98.0. GENERAL: This is a well-developed, well-nourished black female, in no apparent distress at this time. HEENT: Normocephalic and nontraumatic cranium. Pupils are equally round. Extraocular movements are intact. Nose and throat are moist. NECK: Supple without masses, nodes, or bruits. CHEST: Clear to auscultation. No rales, rhonchi, wheezes, or cough is heard. HEART: Reveals a regular rate and rhythm without murmurs, gallops, or rubs. ABDOMEN: Obese, soft, nontender without organomegaly. Normal bowel sounds noted in all 4 quadrants. No rebound or guarding is noted. : Deferred. EXTREMITIES: Reveal chronic edema and chronic stasis dermatitis. No clubbing or cyanosis is noted. NEUROLOGIC: The patient is awake, but as usual somewhat slow. She is oriented to person and place. The Patient is on a pureed diet because of her generalized weakness and dysphagia, but she does have to be fed. IMPRESSION: 1. Dysphagia on a pureed diet. 2. Very poor appetite, may need to be fed if she does not eat more than 50%. 3. Diabetes type 2. 4. Hypertension. 5. Hyperlipidemia. 6. Chronic lymphedema. 7. Resolving urinary tract infection. 8. History of hypoglycemia. 9. Chronic kidney disease, stage 3. 10. Generalized weakness with deconditioning. PLAN: 1. Continue 1800 calorie ADA pureed diet. 2. Feed the patient if she is unable to eat at least 50% of the meal. 3. Aspiration precautions. 4. Continue Accu-Cheks a.c. and at bedtime with sliding scale. 5. DVT and stress ulcer prophylaxis. 6. Decubitus precautions. 7. Continue PT and OT. 8. Consult Case Management is in for possible halfway placement since the patient's family is unable to care for her. 9. No family at bedside. 10. Discussed with the patient and nursing. Job ID: [id number]
[2019-02-23] MEDS: Enoxaparin Sodium 30 MG/0.3 ML SYRINGE SC SCH (20:36)
[2019-02-23] MEDS: Ondansetron ODT 4 MG TAB PO PRN (21:21)
[2019-02-24] MEDS: Ondansetron ODT 4 MG TAB PO PRN ×3 (05:41→21:31)
[2019-02-24] MEDS: Mag-Al Plus 1200 MG/1200 MG/120 MG/30 ML UDCUP PO PRN ×2 (07:46→17:30)
[2019-02-24] MEDS: Carvedilol 6.25 MG TAB PO SCH ×2 (07:47→17:31)
[2019-02-24] MEDS: Aspirin 81 mg Enteric Coated Tablet PO SCH (08:56)
[2019-02-24] MEDS: Folic Acid 1 MG TAB PO SCH (08:58)
[2019-02-24] MEDS: pyridOXINE 50 MG (B6) TAB PO SCH (08:59)
[2019-02-24] MEDS: Hydrochlorothiazide 25 MG TAB PO SCH (09:01)
[2019-02-24] MEDS: NIFEdipine XL 30 MG TAB PO SCH (09:01)
[2019-02-24] MEDS: Polyethylene Glycol 3350 17 GM Packet PO SCH (09:01)
[2019-02-24] MEDS: hydrALAZINE 25 MG TAB PO SCH ×3 (09:35→21:31)
--- NOTE | 2019-02-24 13:11 | PRG ---
DATE OF SERVICE: 02/24/2019 SUBJECTIVE: Ms. Valentin is more somnolent today than usual. She apparently had an episode of vomiting yesterday after she had the Suplena. She felt better after vomiting. She was ordered Zofran p.r.n. She also apparently complained of some epigastric pain. She was not on any H2 blockers. I started her on Protonix. I examined her today and she does have some minimal tenderness, but no guarding, rebound, or rigidity. She is not very cooperative and I am not sure she understands what I am saying, so just to be safe we will order a right upper quadrant ultrasound to evaluate her gallbladder tomorrow. In the meantime, I advised nursing to just keep her on a bland diet. They are apparently doing the calorie count, but the dietitian has not reviewed it yet. I tried to call her daughter, Chen Sumner, at [phone], but there is no answer and voicemail has not been set up yet. Nursing said that no family has shown up today. The main concern is if she is not having enough p.o. intake, then we need to look at what the family's outlook is and how aggressive they want to be. OBJECTIVE: VITAL SIGNS: She is afebrile. Heart rate is 57, respirations 16, oxygen saturation 98% on room air, and blood pressure 168/79. CARDIOVASCULAR SYSTEM: S1 and S2 plus. RESPIRATORY SYSTEM: Normal vesicular breath sounds. ABDOMEN: Soft. Minimal tenderness in the epigastric region. No obvious Guaman sign. No guarding, rebound, or rigidity. Bowel sounds heard in all quadrants. EXTREMITIES: Without cyanosis or clubbing. CENTRAL NERVOUS SYSTEM: More somnolent today. She does nod to questions yes or no. No family at bedside. IMPRESSION: 1. Poor p.o. intake with epigastric and possibly right upper quadrant pain. 2. Diabetes mellitus, type 2. 3. Hypertension. 4. Dyslipidemia. 5. Chronic lymphedema. 6. Resolving urinary tract infection. 7. Resolved hyperkalemia. PLAN: 1. Recheck CBC and BMP in the morning. 2. N.p.o. after midnight and get a right upper quadrant ultrasound in the morning. 3. Await 3-day calorie count. 4. Encourage p.o. intake. 5. Physical therapy. 6. Case Management to discuss discharge planning with family. 7. Nutritional support with aspiration precautions. 8. DVT prophylaxis - she is on Lovenox. 9. Discussed with nursing and the patient in detail. All questions answered. Job ID: [id number]
--- NOTE | 2019-02-24 13:38 | ULT ---
US Gallbladder RUQ: 02/24/2019 12:50 PM CLINICAL HISTORY: Right upper quadrant abdominal pain and vomiting for 2 days. STUDY: Limited right upper quadrant ultrasound of abdomen. COMPARISON: None. FINDINGS: Liver: Size: Normal. Echogenicity: Normal. Contour: Smooth. Mass: None. Bile ducts: No intrahepatic or extrahepatic biliary dilatation. Common bile duct measures 5 mm. Gallbladder: Cholelithiasis. Sludge is also seen in the gallbladder. No gallbladder wall thickening o r pericholecystic fluid. Pancreas: Head, body, and tail appear normal. Right kidney: No pelvicalyceal dilatation. Right kidney measuring 11.3 cm in length. IMPRESSION: Cholelithiasis and gallbladder sludge
[2019-02-24] MEDS: Enoxaparin Sodium 30 MG/0.3 ML SYRINGE SC SCH (21:31)
[2019-02-25 05:50] LABS: Anion Gap 12 mmol/L (10-20); BUN (Urea Nitrogen) 22 mg/dL (9.8-20.1); Calc. Creatinine Clearance 52 mL/min (70-130); Calcium 8.2 mg/dL (7.8-10.44); Carbon Dioxide 20 mmol/L (23-31); Chloride 111 mmol/L (98-107); Estimated GFR-MDRD 28; Glucose 72 mg/dL (80-115); Potassium 4.7 mmol/L (3.5-5.1); Sodium 138 mmol/L (136-145)
[2019-02-25 05:56] LABS: #Basophils 0.1 thou/uL (0.0-0.2); #Eosinphils 0.1 thou/uL (0.0-0.7); #Lymphocytes 1.1 thou/uL (1.20-3.40); #Monocytes 0.5 thou/uL (0.11-0.59); #Neutrophils 2.1 thou/uL (1.40-6.50); %Basophils 1.5 % (0.0-1.0); %Eosinophils 3.2 % (0.0-10.0); %Lymphocytes 29.3 % (21.0-51.0); %Monocytes 12.3 % (0.0-10.0); %Neutrophils 53.6 % (42.0-75.0); Anisocytosis SLIGHT = 6-15 cells (100X) (0-5/hpf); Hemoglobin 7.6 g/dL (12.0-16.0); Hypochromia MODERATE=16-30 cells (100X) (0-5/hpf); MDiff Complete? YES; Mean Corpuscular HGB CONC 31.1 g/dL (32.0-36.0); Mean Corpuscular Hemoglobin 29.3 pg (27.0-31.0); Mean Corpuscular Volume 94.4 fL (78.0-98.0); Mean Platelet Volume 7.2 fL (7.4-10.4); Platelet Count 200 thou/uL (130-400); Platelet Morphology Comment Appears Adequate; RBC Distribution Width 16.9 % (11.5-14.5); Red Blood Cell (RBC) Count 2.57 mill/uL (4.20-5.40); White Blood Cell (WBC) Count 3.9 thou/uL (4.8-10.8)
[2019-02-25] MEDS: Aspirin 81 mg Enteric Coated Tablet PO SCH (09:28)
[2019-02-25] MEDS: pyridOXINE 50 MG (B6) TAB PO SCH (09:29)
[2019-02-25] MEDS: NIFEdipine XL 30 MG TAB PO SCH (09:30)
[2019-02-25] MEDS: Carvedilol 6.25 MG TAB PO SCH ×2 (09:30→17:14)
[2019-02-25] MEDS: Folic Acid 1 MG TAB PO SCH (09:31)
[2019-02-25] MEDS: hydrALAZINE 25 MG TAB PO SCH ×3 (09:32→21:36)
[2019-02-25] MEDS: Hydrochlorothiazide 25 MG TAB PO SCH (09:32)
[2019-02-25] MEDS: Polyethylene Glycol 3350 17 GM Packet PO SCH (09:32)
--- NOTE | 2019-02-25 14:26 | PRG ---
DATE OF SERVICE: 02/25/2019 SUBJECTIVE: Ms. Valentin is slightly more awake and responsive today. She apparently refused breakfast this morning, but did eat about 50% of lunch. Discussed with Therapy and nursing and they all feel that she is not safe to go home. I am hoping to talk with her daughter. I tried to call her yesterday, but there was no answer and voice mail was not set up. OBJECTIVE: VITAL SIGNS: She is afebrile. Heart rate 63, respirations 16, oxygen saturation 97% on room air, blood pressure 154/70. CARDIOVASCULAR SYSTEM: S1-S2 plus. RESPIRATORY SYSTEM: No vesicular breath sounds. ABDOMEN: Soft, nontender. Bowel sounds in all quadrants. EXTREMITIES: Chronic lymphedema and stasis dermatitis. CENTRAL NERVOUS SYSTEM: Awake and responsive. Significant deconditioning. Cranial nerves 2 through 12 grossly intact except for mild dysphagia. DIAGNOSTIC STUDIES: Ultrasound of the abdomen does show cholelithiasis and some gallbladder sludge. She is not complaining of any nausea or abdominal pain today. IMPRESSION: 1. Possible biliary colic. 2. Diabetes mellitus type 2. 3. Hypertension. 4. Dyslipidemia. 5. Chronic lymphedema. 6. Resolved hyperkalemia. PLAN: 1. Continue current medications. 2. Nutritional support. 3. Monitor for any recurrence of biliary colic. I am not sure she is a candidate for surgery, but we will discuss with family. 4. PT/OT. 5. Discharge planning most likely [facility]. Routine laboratory values. Discussed with nursing in detail. All questions answered. Job ID: [id number]
[2019-02-25] MEDS: Enoxaparin Sodium 30 MG/0.3 ML SYRINGE SC SCH (21:37)
[2019-02-26] MEDS: Ondansetron ODT 4 MG TAB PO PRN (08:07)
[2019-02-26] MEDS: NIFEdipine XL 30 MG TAB PO SCH (08:48)
[2019-02-26] MEDS: Hydrochlorothiazide 25 MG TAB PO SCH (08:48)
[2019-02-26] MEDS: Aspirin 81 mg Enteric Coated Tablet PO SCH (08:48)
[2019-02-26] MEDS: Folic Acid 1 MG TAB PO SCH (08:49)
[2019-02-26] MEDS: pyridOXINE 50 MG (B6) TAB PO SCH (08:49)
[2019-02-26] MEDS: Carvedilol 6.25 MG TAB PO SCH ×2 (08:49→17:41)
[2019-02-26] MEDS: hydrALAZINE 25 MG TAB PO SCH ×3 (08:49→21:49)
[2019-02-26] MEDS: Polyethylene Glycol 3350 17 GM Packet PO SCH (08:50)
--- NOTE | 2019-02-26 13:49 | PRG ---
DATE OF SERVICE: 02/26/2019 SUBJECTIVE: Ms. Valentin is up in her bed, trying to eat her lunch. She apparently needs to be fed to eat any significant amount. I am supposed to have a family conference tomorrow to see what the family's wishes are. She does have gallstones with gallbladder sludge with no obvious signs of infection, but she is having some nausea and episodes of abdominal pain, so I am not sure if this is biliary in nature and whether she is even a candidate for surgery and even with the surgery, whether that is going to improve her p.o. intake. She is also significantly deconditioned, has not shown much improvement here, so therapy is recommending [facility]ci placement, which I agree, but family wants to decide whether they want to do that. Depending upon her p.o. intake, whether they want to be aggressive in place a PEG tube or whether they want to focus on comfort measures. These are the things we are going to talk tomorrow. Currently, the patient is resting comfortably. Discussed with nursing. OBJECTIVE: VITAL SIGNS: She is afebrile, heart rate 75, respirations 20, oxygen saturation 96% on room air, blood pressure 145/70. CARDIOVASCULAR SYSTEM: S1 and S2 plus. RESPIRATORY SYSTEM: Normal vesicular breath sounds. ABDOMEN: Soft, obese, nontender. Bowel sounds heard in all quadrants. EXTREMITIES: Without cyanosis or clubbing. Chronic lymphedema and stasis dermatitis. CENTRAL NERVOUS SYSTEM: Awake and responsive. Significant deconditioning. LABORATORY VALUES: Done yesterday shows white count of 3.9, hemoglobin and hematocrit are 7.6 and 24.3. Sodium 138, potassium 4.7, BUN and creatinine are 22 and 2.14. Blood sugars are 94, 111, 95, 82, and 97. IMPRESSION: 1. Diabetes mellitus, type 2. 2. Hypertension. 3. Dyslipidemia. 4. Chronic lymphedema. 5. Poor p.o. intake. 6. Persistent deconditioning. 7. Cholelithiasis with sludge. PLAN: 1. Continue current medications. 2. Nutritional support. 3. DVT and stress ulcer prophylaxis. 4. Decubitus precautions. 5. Routine laboratory values. 6. Discussed with family tomorrow and find out how aggressive the treatment they want to be. I personally feel given her multiple comorbid conditions and her poor p.o. intake that is not going to improve even if this is gallbladder related and she undergoes successful gallbladder surgery. There is also question of possible stroke as the daughter yesterday stated that this is new to her and she apparently was walking and talking. Reviewing her old records, she did have a brain CT on 02/05, which shows no significant acute intracranial process. She then underwent a CT [place], angio with contrast also on 02/05 for cognitive deficits and altered mental status and that also showed no acute finding. So, unlikely that this is related to a CVA since these changes happened prior to CT angiography and brain CT. If family wants aggressive treatment, we will transfer her to [place] for general surgical evaluation for possible cholecystectomy and then if her p.o. intake does not improve, then they can do a PEG tube placement. If family wants comfort measures, then we will transfer her to the [facility] and maybe even be a candidate for hospice. Job ID: [id number]
[2019-02-26] MEDS: Enoxaparin Sodium 30 MG/0.3 ML SYRINGE SC SCH (21:50)
[2019-02-27] MEDS: hydrALAZINE 25 MG TAB PO SCH ×3 (08:40→20:59)
[2019-02-27] MEDS: Aspirin 81 mg Enteric Coated Tablet PO SCH (08:41)
[2019-02-27] MEDS: Carvedilol 6.25 MG TAB PO SCH ×2 (08:41→16:21)
[2019-02-27] MEDS: Hydrochlorothiazide 25 MG TAB PO SCH (08:41)
[2019-02-27] MEDS: NIFEdipine XL 30 MG TAB PO SCH (08:41)
[2019-02-27] MEDS: Folic Acid 1 MG TAB PO SCH (08:41)
[2019-02-27] MEDS: pyridOXINE 50 MG (B6) TAB PO SCH (08:41)
[2019-02-27] MEDS: Polyethylene Glycol 3350 17 GM Packet PO SCH (08:42)
--- NOTE | 2019-02-27 15:45 | PRG ---
DATE OF SERVICE: 02/27/2019 SUBJECTIVE: Ms. Valentin is doing the same. Her p.o. intake is still fluctuating. She is not doing anything with therapy and is being discharged tomorrow. The information has been sent to [facility] per family's request. We supposed to have a family conference today, but no one showed up. OBJECTIVE: VITAL SIGNS: She is afebrile, heart rate 67, respirations 18, oxygen saturation 93% on room air, blood pressure 143/70. CARDIOVASCULAR SYSTEM: S1 and S2 plus. RESPIRATORY SYSTEM: Normal vesicular breath sounds. ABDOMEN: Soft, obese, nontender. Bowel sounds heard in all quadrants. EXTREMITIES: Without cyanosis or clubbing. Peripheral pulses are palpable. Chronic lymphedema with stasis dermatitis. LABORATORY DATA: Blood sugars are 82, 97, 93, 92, 73, and 79. IMPRESSION: 1. Diabetes mellitus, type 2. 2. Resolved urinary tract infection. 3. Dysphagia with poor p.o. intake. 4. Hypertension. 5. Dyslipidemia. 6. Chronic lymphedema. 7. Peripheral neuropathy and significant deconditioning. PLAN: 1. Continue current medications and continue to encourage p.o. intake. 2. Aspiration precautions. 3. Monitor blood sugars with Accu-Cheks and sliding scale coverage. 4. DVT prophylaxis, she is on Lovenox. 5. Decubitus precautions. 6. Discharge planning and placement. 7. Poor prognosis. I was hoping to talk with the family today and family conference was scheduled this afternoon during lunchtime, but no one showed up. Job ID: [id number]
[2019-02-27] MEDS: Enoxaparin Sodium 30 MG/0.3 ML SYRINGE SC SCH (20:59)
[2019-02-28 06:09] LABS: #Basophils 0.1 thou/uL (0.0-0.2); #Eosinphils 0.1 thou/uL (0.0-0.7); #Monocytes 0.6 thou/uL (0.11-0.59); #Neutrophils 2.4 thou/uL (1.40-6.50); %Basophils 1.5 % (0.0-1.0); %Eosinophils 2.9 % (0.0-10.0); %Lymphocytes 24.2 % (21.0-51.0); %Monocytes 14.3 % (0.0-10.0); %Neutrophils 57.1 % (42.0-75.0); Hemoglobin 8.4 g/dL (12.0-16.0); Hypochromia SLIGHT = 6-15 cells (100X) (0-5/hpf); MDiff Complete? YES; Mean Corpuscular HGB CONC 30.6 g/dL (32.0-36.0); Mean Corpuscular Hemoglobin 29.4 pg (27.0-31.0); Mean Platelet Volume 6.9 fL (7.4-10.4); Microcytosis SLIGHT = 6-15 cells (100X) (0-5/hpf); Platelet Count 243 thou/uL (130-400); Platelet Morphology Comment Appears Adequate; RBC Distribution Width 16.5 % (11.5-14.5); Red Blood Cell (RBC) Count 2.85 mill/uL (4.20-5.40); White Blood Cell (WBC) Count 4.2 thou/uL (4.8-10.8)
[2019-02-28 06:19] LABS: Anion Gap 12 mmol/L (10-20); BUN (Urea Nitrogen) 21 mg/dL (9.8-20.1); Calc. Creatinine Clearance 54 mL/min (70-130); Calcium 8.4 mg/dL (7.8-10.44); Carbon Dioxide 20 mmol/L (23-31); Chloride 110 mmol/L (98-107); Estimated GFR-MDRD 29; Glucose 77 mg/dL (80-115); Potassium 4.8 mmol/L (3.5-5.1); Sodium 137 mmol/L (136-145)
[2019-02-28] MEDS: Polyethylene Glycol 3350 17 GM Packet PO SCH ×2 (08:54→08:59)
[2019-02-28] MEDS: NIFEdipine XL 30 MG TAB PO SCH (08:54)
[2019-02-28] MEDS: pyridOXINE 50 MG (B6) TAB PO SCH (08:54)
[2019-02-28] MEDS: Folic Acid 1 MG TAB PO SCH (08:55)
[2019-02-28] MEDS: Hydrochlorothiazide 25 MG TAB PO SCH (08:56)
[2019-02-28] MEDS: hydrALAZINE 25 MG TAB PO SCH ×3 (08:56→21:01)
[2019-02-28] MEDS: Aspirin 81 mg Enteric Coated Tablet PO SCH (08:56)
[2019-02-28] MEDS: Carvedilol 6.25 MG TAB PO SCH ×2 (08:57→17:16)
--- NOTE | 2019-02-28 09:56 | PRG ---
DATE OF SERVICE: 02/28/2019 SUBJECTIVE: Ms. Valentin is sleeping, but arousable. She hardly has touched her breakfast. She again eats only when she is fed and that too about 40% to 50%. Family conference was supposed to be yesterday, but none of the family showed up. I advised the nursing to inform them and see if they can at least come tomorrow afternoon. [facility] is evaluating her for potential admission. She is not participating with therapy and therapy is going to be discharging her today. OBJECTIVE: VITAL SIGNS: She is afebrile, heart rate 56, respirations 20, oxygen saturation 96%, blood pressure 163/73. CARDIOVASCULAR SYSTEM: S1 and S2 plus. RESPIRATORY SYSTEM: Normal vesicular breath sounds. ABDOMEN: Soft, obese, nontender. Bowel sounds heard in all quadrants. EXTREMITIES: Chronic lymphedema and stasis dermatitis. CENTRAL NERVOUS SYSTEM: Sleeping, but arousable. Mild dysphasia and dysphagia. Generalized weakness. LABORATORY DATA: White count is 4.2, H and H are 8.4 and 27.3. Sodium 137, potassium 4.8, BUN and creatinine are 21 and 2.06. Blood sugars are 79, 89, 88, 91. IMPRESSION: 1. Diabetes mellitus, type 2. 2. Hypertension. 3. Dyslipidemia. 4. Chronic lymphedema and stasis dermatitis. 5. Dysphagia. 6. Peripheral neuropathy. 7. Significant deconditioning and not improving with therapy. PLAN: 1. Continue current medications. 2. Aspiration precautions. 3. DVT prophylaxis with Lovenox. 4. Decubitus precautions. 5. Stress ulcer prophylaxis. 6. Discharge planning. The patient at present cannot be home as she needs 24/7 care and 2-person assistance for all ADLs. Job ID: [id number]
[2019-02-28] MEDS: Enoxaparin Sodium 30 MG/0.3 ML SYRINGE SC SCH (21:00)
[2019-03-01] MEDS: Carvedilol 6.25 MG TAB PO SCH ×2 (08:53→17:43)
[2019-03-01] MEDS: Folic Acid 1 MG TAB PO SCH (08:53)
[2019-03-01] MEDS: pyridOXINE 50 MG (B6) TAB PO SCH (08:54)
[2019-03-01] MEDS: hydrALAZINE 25 MG TAB PO SCH ×3 (08:55→20:44)
[2019-03-01] MEDS: NIFEdipine XL 30 MG TAB PO SCH (08:55)
[2019-03-01] MEDS: Hydrochlorothiazide 25 MG TAB PO SCH (08:56)
[2019-03-01] MEDS: Aspirin 81 mg Enteric Coated Tablet PO SCH (08:56)
[2019-03-01] MEDS: Polyethylene Glycol 3350 17 GM Packet PO SCH (08:58)
--- NOTE | 2019-03-01 13:45 | PRG ---
DATE OF SERVICE: 03/01/2019 SUBJECTIVE: Ms. Valentin is doing the same, hardly eating anything unless fed and even then maybe 50%. I was supposed to have a family meeting today and again nobody showed up. I am going to try to call Gilda, her daughter, and I have this number here, which is [phone] and see what they have decided. We are waiting. I think she has been accepted at the [facility], but family needs to go and sign papers. OBJECTIVE: VITAL SIGNS: She is afebrile. Heart rate 65, respirations 16, oxygen saturation 96% on room air, blood pressure 146/67. CARDIOVASCULAR SYSTEM: S1 and S2 plus. RESPIRATORY SYSTEM: Normal vesicular breath sounds. ABDOMEN: Soft, obese, nontender. Bowel sounds heard in all quadrants. EXTREMITIES: Without cyanosis or clubbing. Chronic lymphedema with stasis dermatitis. CENTRAL NERVOUS SYSTEM: Awake and responsive. Chronic dysarthria and dysphagia noted. LABORATORY DATA: Blood sugars are 89, 84, 77, 72, and 79. IMPRESSION: 1. Resolved urinary tract infection. 2. Diabetes mellitus type 2, excellent control. 3. Hypertension. 4. Dyslipidemia. 5. Chronic lymphedema. 6. Poor p.o. intake. 7. Persistent deconditioning. PLAN: 1. Await family decision as to their plan of care. I have tried to meet with them for the last 3 days, but apparently no one is showing up and no one has been able to make any contact with the family. 2. 1800-calorie heart healthy ADA diet. 3. Nutritional support. 4. DVT and stress ulcer prophylaxis. 5. Decubitus precautions. 6. Discharge planning. 7. Routine laboratory values. Job ID: [id number]
[2019-03-01] MEDS: Enoxaparin Sodium 30 MG/0.3 ML SYRINGE SC SCH (20:43)
[2019-03-02] MEDS: Folic Acid 1 MG TAB PO SCH (08:32)
[2019-03-02] MEDS: hydrALAZINE 25 MG TAB PO SCH ×3 (08:32→21:30)
[2019-03-02] MEDS: Aspirin 81 mg Enteric Coated Tablet PO SCH (08:33)
[2019-03-02] MEDS: Hydrochlorothiazide 25 MG TAB PO SCH (08:33)
[2019-03-02] MEDS: NIFEdipine XL 30 MG TAB PO SCH (08:33)
[2019-03-02] MEDS: Carvedilol 6.25 MG TAB PO SCH ×2 (08:33→16:42)
[2019-03-02] MEDS: pyridOXINE 50 MG (B6) TAB PO SCH (08:34)
[2019-03-02] MEDS: Polyethylene Glycol 3350 17 GM Packet PO SCH (08:34)
--- NOTE | 2019-03-02 16:05 | PRG ---
DATE OF SERVICE: 03/02/2019 SUBJECTIVE: Ms. Valentin is resting comfortably in bed. Denies any complaints. States that she is eating as good as she can. No family at bedside, but discussed with one of her daughters yesterday. She apparently is the one who was living with the patient. She states the plan is for her to take her to [facility] tomorrow. She is aware that mom is not eating well and I did talk to them about the different options and also the presence of the gallstones. She denied any concerns or questions. OBJECTIVE: VITAL SIGNS: She is afebrile. Heart rate 70, respirations 20, oxygen saturation 94% on room air, blood pressure 141/67. CARDIOVASCULAR: S1 and S2 plus. RESPIRATORY: Normal vesicular breath sounds. ABDOMEN: Soft, nontender. Bowel sounds in all quadrants. EXTREMITIES: Without cyanosis or clubbing. Chronic lymphedema and stasis dermatitis. CENTRAL NERVOUS SYSTEM: AAO x3. Generalized weakness. IMPRESSION: 1. Resolved urinary tract infection. 2. Diabetes mellitus type 2. 3. Hypertension. 4. Dyslipidemia. 5. Chronic lymphedema. 6. Poor p.o. intake and significant deconditioning and not participating with therapy. PLAN: 1. Anticipate discharging her to the senior living tomorrow. 2. Continue to encourage p.o. intake. 3. 1800 calorie heart healthy ADA diet with aspiration precautions. 4. DVT and stress ulcer prophylaxis. 5. Decubitus precautions. 6. Accu-Cheks with sliding scale coverage. 7. Poor exterminator termite prognosis. Job ID: [id number]
[2019-03-02] MEDS: Enoxaparin Sodium 30 MG/0.3 ML SYRINGE SC SCH (21:30)
[2019-03-03] MEDS: Carvedilol 6.25 MG TAB PO SCH ×2 (08:23→16:03)
[2019-03-03] MEDS: Folic Acid 1 MG TAB PO SCH (08:24)
[2019-03-03] MEDS: hydrALAZINE 25 MG TAB PO SCH ×3 (08:26→21:02)
[2019-03-03] MEDS: Aspirin 81 mg Enteric Coated Tablet PO SCH (08:27)
[2019-03-03] MEDS: Hydrochlorothiazide 25 MG TAB PO SCH (08:27)
[2019-03-03] MEDS: pyridOXINE 50 MG (B6) TAB PO SCH (08:30)
[2019-03-03] MEDS: NIFEdipine XL 30 MG TAB PO SCH (08:31)
[2019-03-03] MEDS: Polyethylene Glycol 3350 17 GM Packet PO SCH (09:02)
--- NOTE | 2019-03-03 14:24 | DIS ---
DATE OF ADMISSION: 02/12/2019 DATE OF DISCHARGE: 03/03/2019 PRINCIPAL DIAGNOSES: Episode of hypoglycemia and urinary tract infection with significant deconditioning, transferred here for therapy. SECONDARY DIAGNOSES: 1. Diabetes mellitus, type 2. 2. Hypertension. 3. Dyslipidemia. 4. Chronic lymphedema and stasis dermatitis. 5. History of constipation. 6. Poor p.o. intake. COMPLICATIONS: None. ADVERSE REACTIONS: None. PROCEDURES: PT/OT eval and treat. CONSULTATIONS: None. HOSPITAL COURSE: The patient was admitted as a transfer from the hospital after being admitted there for hypoglycemia and diagnosed with UTI. She was felt to be significantly deconditioned and transferred here. Unfortunately, she did not make any progress and hardly participated with therapy. Her p.o. intake was very poor as well and needed significant help with feeding. Three day calorie count showed intake in the 200, 800, and 1400 calorie range in the 3 days, and the 1400 calorie was when she was fed. I had a long discussion with two of her daughters and explained to them that she is really not eating enough to sustain herself and family needs to make some decisions as to how aggressive they want her care to be. If they want everything done, then she needs to be transferred up to [place] for possible PEG tube placement. I also did find out that she has cholelithiasis with biliary sludge. I am not sure if that was causing the problem because she was having initially some nausea and right upper quadrant pain, but has not complained about that in the last few days. So when she is in [place], she can also get a surgical evaluation for that. If they want comfort care, then hospice may be appropriate. Family did not make any decision, but they did agree that they cannot take care of her at home and they had chosen [facility]. She is rapidly declining and family is aware. PHYSICAL EXAMINATION: VITAL SIGNS: On the day of discharge, she is afebrile, heart rate is 67, respirations 18, oxygen saturation 94% on room air, and blood pressure 160/75. CARDIOVASCULAR SYSTEM: S1 and S2 plus. RESPIRATORY SYSTEM: Normal vesicular breath sounds. ABDOMEN: Soft, obese, and nontender. Bowel sounds heard in all quadrants. EXTREMITIES: Without cyanosis or clubbing. Chronic lymphedema with stasis dermatitis. CENTRAL NERVOUS SYSTEM: Awake and responsive, but somnolent and significant deconditioning. IMPRESSION: 1. Resolved hypoglycemia. 2. Resolved urinary tract infection. 3. Poor p.o. intake. 4. Persistent deconditioning. 5. Mild dysphagia. 6. Diabetes mellitus, type 2. 7. Hypertension. 8. Dyslipidemia. PLAN: 1. Transfer to [facility]. 2. Needs assistance with feeding and aspiration precautions. 3. Discharge med rec done. 4. Poor manager long term care prognosis. 5. I was supposed to have family conference twice last and Sunday, but no one showed up. I did talk to two of her daughters individually and they said they will discuss with the rest, but they are in agreement about going to [facility]. She will be followed by the medical billing associate at [facility]. Family to contact me with any questions or concerns. DISCHARGE MEDICATIONS: 1. Ecotrin 81 daily. 2. Coreg 6.25 b.i.d. 3. Vitamin D3 2000 units daily. 4. Folic acid 2.5 daily. 5. Hydralazine 50 mg t.i.d. 6. Hydrochlorothiazide 25 daily. 7. Procardia XL 60 mg daily. 8. Protonix 40 mg daily. 9. MiraLAX 17 g in 8 ounces of water daily. 10. Vitamin B6 25 mg daily. For full details, please see chart. LABORATORY DATA: Her last lab work that I have here is from the and it shows white count of 4.2, H and H of 8.4 and 27.3. Blood sugars are 88, 82, 86, 84, and 89, and last BMP from 02/28 shows sodium 137, potassium 4.8, BUN and creatinine are 21 and 2.06. Job ID: [id number]
[2019-03-03] MEDS: Ondansetron ODT 4 MG TAB PO PRN (16:08)
[2019-03-03] MEDS: Enoxaparin Sodium 30 MG/0.3 ML SYRINGE SC SCH (21:02)
[2019-03-04] MEDS: hydrALAZINE 25 MG TAB PO SCH ×3 (08:35→20:36)
[2019-03-04] MEDS: Ondansetron ODT 4 MG TAB PO PRN (08:35)
[2019-03-04] MEDS: Aspirin 81 mg Enteric Coated Tablet PO SCH (08:35)
[2019-03-04] MEDS: NIFEdipine XL 30 MG TAB PO SCH (08:36)
[2019-03-04] MEDS: Carvedilol 6.25 MG TAB PO SCH ×2 (08:36→17:36)
[2019-03-04] MEDS: pyridOXINE 50 MG (B6) TAB PO SCH (08:36)
[2019-03-04] MEDS: Folic Acid 1 MG TAB PO SCH (08:36)
[2019-03-04] MEDS: Hydrochlorothiazide 25 MG TAB PO SCH (08:36)
[2019-03-04] MEDS: Polyethylene Glycol 3350 17 GM Packet PO SCH (09:11)
[2019-03-04] MEDS: Enoxaparin Sodium 30 MG/0.3 ML SYRINGE SC SCH (20:36)
[2019-03-05 07:48] VITALS: BP 164/74; TEMP 99
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
[2019-03-05] MEDS: Folic Acid 1 MG TAB PO SCH (08:27)
[2019-03-05] MEDS: Aspirin 81 mg Enteric Coated Tablet PO SCH (08:30)
[2019-03-05] MEDS: Carvedilol 6.25 MG TAB PO SCH (08:30)
[2019-03-05] MEDS: Hydrochlorothiazide 25 MG TAB PO SCH (08:30)
[2019-03-05] MEDS: NIFEdipine XL 30 MG TAB PO SCH (08:30)
[2019-03-05] MEDS: hydrALAZINE 25 MG TAB PO SCH (08:30)
[2019-03-05] MEDS: pyridOXINE 50 MG (B6) TAB PO SCH (08:31)
[2019-03-05] MEDS: Polyethylene Glycol 3350 17 GM Packet PO SCH (08:32)
== END 2019-03-05 13:31 | DRG 638 ==
LOC: NAV ACUTE 16:05
PROVIDERS: ADMIT Internal Medicine; ATTEND Internal Medicine
DX: E11.649 Type 2 diabetes mellitus with hypoglycemia without coma (principal); N39.0 Urinary tract infection, site not specified; G93.40 Encephalopathy, unspecified; E46 Unspecified protein-calorie malnutrition; Z68.43 Body mass index [BMI] 50.0-59.9, adult; R53.81 Other malaise; E78.5 Hyperlipidemia, unspecified; I89.0 Lymphedema, not elsewhere classified; I87.2 Venous insufficiency (chronic) (peripheral); K59.00 Constipation, unspecified; R13.10 Dysphagia, unspecified; E87.5 Hyperkalemia; N18.3 Chronic kidney disease, stage 3 (moderate); I12.9 Hypertensive chronic kidney disease with stage 1 through stage 4 chronic kidney disease, or unspecified chronic kidney disease; E11.22 Type 2 diabetes mellitus with diabetic chronic kidney disease; E11.42 Type 2 diabetes mellitus with diabetic polyneuropathy; R53.1 Weakness; K80.20 Calculus of gallbladder without cholecystitis without obstruction; Z90.710 Acquired absence of both cervix and uterus
CPT/HCPCS: 36415; 36416; 76705; 80048; 85025; J1650; Q0162